=== PATIENT | male | born 1970 | race Caucasian/White ===

== ENCOUNTER 2016-02-14 01:26 | Emergency (ER) | payer OTHER ==
[~2016-02-14] VITALS: Ht 172.7 cm; Wt 89.1 kg
[~2016-02-14 01:26] MED LIST: LORA1TAB PO; NAPR220C11 PO; RES15 PO
[2016-02-14 01:32] VITALS: BP 131/79; PULSE 83; RESP 16; O2SAT 99
--- NOTE | 2016-02-14 01:33 | ED.REPORT ---
HPI-General Illness Date of Service Feb 14, 2016 ED Provider: Dr. Gu Pt is a 45 y/o male w/ a hx of Stage IV non-Hodgkin's lymphoma, diabetes, peripheral neuropathy, presenting to the ED due to mid-upper back pain onset this morning. His back pain intermittently resolves and is followed by right posterior calf pain with tenderness to the touch. This wave of symptoms has occurred 3 times today. He also notes a red line above his right posterior shoulder. He denies SOB, extremity swelling, increased leg numbness or weakness , bowel or bladder incontinence. Oncologist: Dr. Dave Nursing Notes Stated Complaint: MID BACK PAIN & R LEG PAIN Chief Complaint: General Complaint Nursing Notes Reviewed: Yes Allergies: Coded Allergies: latex (Verified Allergy, Severe, HIVES, 02/14/16) Penicillins (Verified Allergy, Intermediate, mild hives, 02/14/16) HAS TAKEN PIPERACILLIN W/O PROBLEMS metronidazole (Verified Allergy, Unknown, UNKNOWN, 02/14/16) codeine (Verified Adverse Reaction, Severe, Dizziness, nausea, 02/14/16) levofloxacin (Verified Adverse Reaction, Severe, tendonitis, achilles, 02/13) Scheduled PRN Lorazepam (Lorazepam) 1 Mg Tablet 1 MG PO Q6H PRN PRN For Anxiety or Agitation Naproxen Sodium (Aleve) 220 Mg Capsule 220 MG PO DIRECTED PRN PRN For Pain Temazepam (Temazepam) 15 Mg Capsule 15-30 MG PO HS PRN PRN For Insomnia General Time Seen by MD: 01:33 Chief Complaint Back pain Hx Obtained From: Patient Arrived By: Walk-in Sudden in Onset?: No Onset Occurred: 5 - 8 hours ago Symptom Duration: Since onset Location: : Back: Leg right Quality: Painful Severity: Current: Mild Severity: Maximum: Moderate Similar Sx Previous: No Past Medical History Past Medical History Notes: oncologist: Dr. 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 Past Surgical History Pituitary adenoma resection Port-A-Cath Right forearm arm repair Reports: Appendectomy Smoking History Current Every Day Smoker, Heavy Tobacco Smoker Social History Alcohol Use: Denies alcohol use Drug Use: Denies drug use Other Social History: Local resident Ambulatory Status Independent Review of Systems Full Review of Systems Respiratory: Denies: Shortness of breath Musculoskeletal: Reports: Back pain, Extremity pain, Denies: Extremity swelling Neurologic: Denies: Bladder dysfunction, Bowel dysfunction, Numbness, Weakness Complete sys rev & neg: except as marked. Physical Exam Vital Signs Vital Signs Date Time Temp Pulse Resp B/P Pulse Ox O2 Delivery O2 Flow Rate FiO2 02/14/16 04:34 36.4 78 16 114/65 95 Room Air 02/14/16 01:32 36.1 83 16 131/79 99 Room Air Initial VS: Reviewed Head / Eyes: Atraumatic, Normocephalic, PERRL ENT: Mucous membranes moist, Conjunctiva normal, No scleral icterus Neck: Supple, Full range of motion Respiratory: Breath sounds normal, Clear to auscultation, No respiratory distress Cardiovascular: Regular rate & rhythm, Heart sounds normal, Intact distal pulses Abdomen / GI: Soft Skin: Warm, Dry, No cyanosis Neurologic: Alert, Oriented, Nonfocal Psychiatric: Mood/affect normal, Behavior normal, Normal thought content General/Constitutional: Awake, Alert, No acute distress, Cooperative, Not toxic appearing Back: Atraumatic, Full range of motion, Painless range of motion, No midline vertebral tend Tenderness of the sub-scapular parispinous muscles on the right 7 cm superficial scratch over the right parispinous area just below the neck. Lower Extremity / Pelvis / MS: Atraumatic, Full range of motion, No deformity, Neurologic intact, Vascular intact, No ligamentous injury, No compartment syndrome Varicose veins of the right calf which are tender, blue, and prominent Interpretation & Diagnostics Lab Results Interpretation Result Diagram: 02/14/16 0315 02/14/16 0215 Test 02/14/16 02:15 02/14/16 03:15 Sodium Level 139mEq/L (134-144) Potassium Level 4.2mEq/L (3.5-5.2) Chloride Level 99mEq/L (97-108) Carbon Dioxide Level 25mmol/L (18-29) Blood Urea Nitrogen 14mg/dL (6-24) Creatinine 0.85mg/dL (0.76-1.27) Estimat Glomerular Filtration Rate 104mL/min (>59) Glucose Level 85mg/dL (60-99) Calcium Level 9.4mg/dL (8.5-10.1) Magnesium Level 1.9mg/dL (1.6-2.6) Total Bilirubin 0.4mg/dL (0.0-1.2) Aspartate Amino Transf (AST/SGOT) 46U/L (0-50) Alanine Aminotransferase (ALT/SGPT) 19U/L (0-44) Alkaline Phosphatase 82U/L (25-150) Troponin T 0.010ug/L (0.0-0.011) Pro-B-Type Natriuretic Peptide 19pg/mL (0-86) Total Protein 7.1g/dL (6.4-8.4) Albumin 4.4g/dL (3.4-5.0) White Blood Count 6.6th/mm3 (3.8-10.1) Red Blood Count 5.00mil/mm3 (4.40-5.80) Hemoglobin 15.0g/dL (13.8-17.2) Hematocrit 43.6% (41.0-50.0) Mean Corpuscular Volume 87.2fL (81-100) Mean Corpuscular Hemoglobin 30.0pg (27.0-35.0) Mean Corpuscular Hemoglobin Concent 34.4% (32.0-37.0) Red Cell Distribution Width 14.2% (12.3-15.4) Platelet Count 316bil/L (150-400) Neutrophils (%) (Auto) 50.5% (40-74) Lymphocytes (%) (Auto) 31.6% (14-46) Monocytes (%) (Auto) 12.7% (4-12) Eosinophils (%) (Auto) 4.5% (0-5) Basophils (%) (Auto) 0.2% (0-3) Prothrombin Time 9.9sec (8.1-12.5) Prothromb Time International Ratio 0.93ratio Activated Partial Thromboplast Time 28.5sec (22.8-33.0) D-Dimer < 0.5mg/L (<0.50) Hold Boyer Top Tube Received (Received) ECG Interpretation ECG Interpretation: Sinus rhythm rate 74 APC Benign repol pattern Time: 03:04 Interpreted by: ED physician Normal ECG Interpretation: No acute ischemic changes X-Ray Chest Interpretation View: Portable, AP & lat Interpretation / Wet Read by: Wet read ED physician NL X-Ray Chest Findings: No infiltrate, No acute disease Re-Eval/Medical Decision Med Decision/Clinical Course 45-year-old with calf pain and concern for clot in his leg. He is multiple varicosities that are tender, but no edema and no other evidence of DVT. A d-dimer is negative. Pain is upper back is elicitable by palpation and he has negative chest x-ray. His lab or reassuringly negative. He is discharged now in stable condition for follow-up with PCP. Support hose recommended. Discharged in stable condition. Percocet ten pack given. Time of Eval: 04:06 Patient Status: Condition improved, Moderate relief, Pain improved Re-Evaluation/Progress Note: Pt rechecked. Discussed negative lab and imaging findings. Informed pt of plan for treatment. Pt understands and agrees with plan for treatment. F/U and RTER warnings given. All questions addressed. Counseled Regarding: Diagnosis, Lab results, Need for follow-up, When/why to return to ED Discharge & Departure Primary Impression: Back pain Back pain location: back pain in unspecified location Chronicity: acute Back pain laterality: bilateral Qualified Code: M54.9 - Dorsalgia, unspecified Additional Impression: Varicose veins of bilateral lower extremities with pain Disposition: Home Discharge Condition All VS Reviewed: Yes Condition: Stable Additional Instructions: Consider wearing your compression hose as long as you are having these pains in your varicose veins. Percocet sparingly for pain as needed Follow-up with your doctor in the office. Referrals: Jaden Rhodes MD (PCP) Scribe Attestation Portions of this note were transcribed by Mika Pineda. I, Dr. Gu personally performed the history, physical exam and medical decision-making; I reviewed and confirmed the accuracy of the information in the transcribed note. Signed by Ronny Wray, 02/14/16 - 0133 copies to: Jaden Rhodes MD, Christopher W MD Feb 14, 2016 01:33 MIKA PINEDA Feb 14, 2016 01:49
[2016-02-14 02:55] LABS: TROPONIN T 0.01 ug/L (0.0-0.011)
[2016-02-14 03:08] LABS: Magnesium 1.9 mg/dL (1.6-2.6)
[2016-02-14 03:28] LABS: BASOPHILS % (AUTO) 0.2 % (0-3); EOSINOPHILS % (AUTO) 4.5 % (0-5); MONOCYTES % (AUTO) 12.7 % (4-12); Mean Corpuscular Volume 87.2 fL (81-100); NEUTROPHILS % (AUTO) 50.5 % (40-74); Platelet Count 316 bil/L (150-400)
[2016-02-14 03:50] LABS: D-DIMER < 0.5 mg/L (<0.50); INR 0.93 ratio
[2016-02-14] MEDS ORDERED: _oxyCODONE/APAP 5-325 mg Tablet PO PRN (04:15)
[2016-02-14 04:34] VITALS: BP 114/65; PULSE 78; RESP 16; O2SAT 95
--- NOTE | 2016-02-14 07:11 | DRSVH ---
PROCEDURE: X-RAY CHEST, TWO VIEWS ([id number]) INDICATIONS: 45 year-old male with Burkitt's lymphoma and right subscapular back pain. TECHNIQUE: 2 views of the chest were acquired. COMPARISON: [facility], CR, XR CHEST 1VW (PORTABLE), 12/31/2015, 0:44. [facility], CR, XR CHEST 1VW (PORTABLE), 05/26/2015, 12:47. [facility], CR, XR CHEST 2VW, , 16:36. FINDINGS: Surgical changes and devices: None. Lungs and pleura: No pleural effusions or pneumothorax. Lungs are clear. Mediastinum: Mediastinal contours are normal. Heart size is normal. Bones and chest wall: No suspicious bony abnormalities. Soft tissues appear unremarkable. IMPRESSION: No acute cardiopulmonary disease. Dictated by: Drew Mccormick M.D. on 02/14/2016 at 7:09 Approved by: Drew Mccormick M.D. on 02/14/2016 at 7:09
== END 2016-02-14 04:40 | disposition home or self-care (01) ==
LOC: SED 01:26
DX: M54.9 Dorsalgia, unspecified (principal); I83.813 Varicose veins of bilateral lower extremities with pain; E11.9 Type 2 diabetes mellitus without complications; F17.200 Nicotine dependence, unspecified, uncomplicated; Z88.0 Allergy status to penicillin; Z88.5 Allergy status to narcotic agent; Z91.040 Latex allergy status
CPT/HCPCS: 36415; 71020; 80053; 82948; 83735; 83880; 84484; 85025; 85379; 85610; 85730; 93005; 96374; 96375; 99285; J2060

== ENCOUNTER 2016-09-25 12:12 | Emergency (ER) | payer OTHER ==
[~2016-09-25] VITALS: Ht 180.3 cm; Wt 88.2 kg
[~2016-09-25 12:12] MED LIST changes: +DIPH25CA6 PO; +PRED1POW2 MC
[2016-09-25 12:15] VITALS: BP 143/106; PULSE 109; RESP 16; O2SAT 99
--- NOTE | 2016-09-25 12:21 | ED.REPORT ---
HPI-Dental/Mouth Prob Date of Service Sep 25, 2016 ED Provider: History of Present Illness: lower left tooth abscess, off and on over the last year started a few months ago. pain gone now. but has a bump in jaw. Nursing Notes Stated Complaint: ABSCESS TOOTH Chief Complaint: Dental Nursing Notes Reviewed: Yes Allergies: Coded Allergies: latex (Verified Allergy, Severe, HIVES, 09/25/16) Iodinated Contrast- Oral and IV Dye (Verified Allergy, Mild, facial tingling, 09/25/16) Pt said he had facial tingling and throat swelling after drinking oral contrast for CT, said he was taken into the IV start room and given benadryl. kld metronidazole (Verified Allergy, Unknown, UNKNOWN, 09/25/16) codeine (Verified Adverse Reaction, Severe, Dizziness, nausea, 09/25/16) levofloxacin (Verified Adverse Reaction, Severe, tendonitis, achilles, ) Scheduled PRN Lorazepam (Lorazepam) 1 Mg Tablet 1 MG PO Q6H PRN PRN For Anxiety or Agitation Naproxen Sodium (Aleve) 220 Mg Capsule 220 MG PO DIRECTED PRN PRN For Pain Temazepam (Temazepam) 15 Mg Capsule 15-30 MG PO HS PRN PRN For Insomnia diphenhydrAMINE HCl (Benadryl) 25 Mg Capsule 25 MG PO HS PRN PRN Miscellaneous Medications Prednisolone (Prednisolone) 1 Gm Powder 1 GM [facility] General Time Seen by MD: 12:20 Chief Complaint Other (swelling in lower lip) Hx Obtained From: Patient Onset Occurred: More than a week ago... (4 months) Severity: Current: No pain currently Past Medical History Past Medical History Notes: oncologist: Dr. 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 with PET scan CT performed September 02 showing extensive disease throughout the abdomen and pelvis - on R-EPOCH treatment Diabetes Peripheral neuropathy Asthma Pseudoseizure 1 prior to resection of pituitary adenoma History of injury to C5 and C6 Varicose veins History of depression and anxiety (not on any medication)- followed by [facility] Past Surgical History Pituitary adenoma resection Port-A-Cath Right forearm arm repair Reports: Appendectomy Smoking History Current Every Day Smoker, Heavy Tobacco Smoker Social History Alcohol Use: Denies alcohol use Drug Use: Denies drug use Other Social History: Local resident 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 no work or school 09/25/2016 Ambulatory Status Independent Review of Systems Basic Review of Systems Eyes: Vision NL, No discharge Endocrine: No cold intolerance, No heat intolerance, No weight gain, No weight loss Psychiatric: Normal thought content Physical Exam Initial Vital Signs Vital Signs (First) Date Time Temp Pulse Resp B/P Pulse Ox O2 Delivery O2 Flow Rate FiO2 09/25/16 12:15 37.0 109 16 143/106 99 Room Air Initial VS: Reviewed, Vital signs abnormal General/Constitutional: Well-developed, Well-nourished Head / Eyes: Atraumatic, Normocephalic, PERRL Respiratory: Breath sounds normal, Clear to auscultation, No respiratory distress Cardiovascular: Regular rate & rhythm, Heart sounds normal, Intact distal pulses Abdomen / GI: Soft, Non-tender, No guarding, No rebound, No distention Back: No CVA tenderness Lymphatic: No lymphadenopathy Extremities: Vascular intact, Neuro intact, No swelling, No tenderness Skin: Warm, Dry, No cyanosis Neurologic: Alert, Oriented, Nonfocal Psychiatric: Mood/affect normal, Behavior normal, Normal thought content ENT: Atraumatic, Airway patent, Mucous membranes moist, Pharynx NL Neck: Atraumatic, Supple, No meningismus, Full range of motion, No adenopathy General/Constitutional: Awake, Alert, No acute distress, Well appearing, Well developed, Well hydrated Respiratory / Chest: Atraumatic, Breath sounds NL, Breath sounds = bilat, No respiratory distress Cardiovascular: Heart rate NL, Regular rhythm, Heart sounds NL, No gallop Re-Eval/Medical Decision Med Decision/Clinical Course 45year old male presents to the ER for evualation of swelling in lower left tooth area. Patient staties it has been off and on over the last year. He does report having a dental appointment next week. No sign of airway impariment or difficulty breathing Discharge & Departure Primary Impression: Dental abscess Disposition: Home Patient Instructions: Dental Abscess (ED) Additional Instructions: You have a palpable lump by your lip. Start antibiotics amoxicillin 500 mg 3 times a day for 10 days. Please keep the dental appointment as scheduled. REturn with any concerns. Referrals: Jaden Rhodes MD (PCP) EDSupervising Provider for APC: Jose Kaur MD copies to: Jaden Rhodes MD, Sue COUNSELLING PSYCHOLOGIST Sep 25, 2016 12:21
== END 2016-09-25 12:49 | disposition home or self-care (01) ==
LOC: SED 12:12
DX: K04.7 Periapical abscess without sinus (principal); F17.200 Nicotine dependence, unspecified, uncomplicated; E11.40 Type 2 diabetes mellitus with diabetic neuropathy, unspecified; Z88.1 Allergy status to other antibiotic agents; Z88.5 Allergy status to narcotic agent; Z91.040 Latex allergy status

== ENCOUNTER 2016-10-30 17:26 | Emergency (ER) | payer OTHER ==
[~2016-10-30] VITALS: Ht 172.7 cm; Wt 87.7 kg
[2016-10-30 17:40] VITALS: BP 139/87; PULSE 108; RESP 18; O2SAT 96
--- NOTE | 2016-10-30 18:36 | ED.REPORT ---
HPI-Abd Pain M 40 and Over Date of Service Oct 30, 2016 ED Provider: Bonilla Still DO The pt is a 46 year old male with a hx of Burkitt's lymphoma, HTN, and asthma presenting to the ED complaining of worsening left-sided abdominal pain onset 3 days ago. Associated symptoms include constipation, hematochezia with bright red blood, intermittent SOB, fever, nausea, and vomiting. He reports that he only had a small amount with his bowel movement 3 days ago. Patient denies chills, chest pain, wheezing, vision changes, diarrhea, dysuria, or back pain. The patient states that he has been dealing with lower abdominal pain for awhile but in the past three days it has worsened and moved more to his left lower quadrant. Nursing Notes Stated Complaint: ABD PAIN Chief Complaint: Male Abdominal Pain Nursing Notes Reviewed: Yes Allergies: Coded Allergies: latex (Verified Allergy, Severe, HIVES, 11/04/16) Iodinated Contrast- Oral and IV Dye (Verified Allergy, Mild, facial tingling, 11/04/16) Pt said he had facial tingling and throat swelling after drinking oral contrast for CT, said he was taken into the IV start room and given benadryl. kld metronidazole (Verified Allergy, Unknown, UNKNOWN, 11/04/16) codeine (Verified Adverse Reaction, Severe, Dizziness, nausea, 11/04/16) levofloxacin (Verified Adverse Reaction, Severe, tendonitis, achilles, ) Scheduled PRN Lorazepam (Lorazepam) 1 Mg Tablet 1 MG PO Q6H PRN PRN For Anxiety or Agitation Naproxen Sodium (Aleve) 220 Mg Capsule 220 MG PO DIRECTED PRN PRN For Pain Temazepam (Temazepam) 15 Mg Capsule 15-30 MG PO HS PRN PRN For Insomnia diphenhydrAMINE HCl (Benadryl) 25 Mg Capsule 25 MG PO HS PRN PRN Miscellaneous Medications Prednisolone (Prednisolone) 1 Gm Powder 1 GM [facility] General Time Seen by MD: 18:39 Chief Complaint Abdominal pain (LLQ) Hx Obtained From: Patient Arrived By: Walk-in Sudden in Onset?: No Onset Occurred: 3 days ago Symptom Duration: Since onset Location: : LLQ Quality: Painful Radiation: : Abdomen lower Severity: Current: Moderate Recent Healthcare: No recent hospitalization, Recent doctor visit Similar Sx Previous: Yes Past Medical History Past Medical History Notes: oncologist: Dr. 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 with PET scan CT performed September 02 showing extensive disease throughout the abdomen and pelvis - on R-EPOCH treatment Diabetes Peripheral neuropathy Asthma Pseudoseizure 1 prior to resection of pituitary adenoma History of injury to C5 and C6 Varicose veins History of depression and anxiety (not on any medication)- followed by [facility] Past Surgical History Pituitary adenoma resection Port-A-Cath Right forearm arm repair Reports: Appendectomy Smoking History Current Every Day Smoker, Heavy Tobacco Smoker Social History Alcohol Use: Denies alcohol use Drug Use: Denies drug use Other Social History: Local resident 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 no work or school 09/25/2016 Ambulatory Status Independent Review of Systems Constitutional: Reports: Fever, Denies: Chills Respiratory: Reports: Shortness of breath, Denies: Wheezing Cardiovascular: Denies: Chest pain GI: Reports: Abdominal pain (LLQ), Constipation, Hematochezia (bright red blood ), Nausea, Vomiting, Denies: Diarrhea Male: Denies Dysuria Musculoskeletal: Denies: Back pain Complete sys rev & neg: except as marked. Physical Exam Initial Vital Signs Initial VS: Reviewed, Vital signs normal Head / Eyes: Atraumatic, Normocephalic, PERRL Neck: Supple, Non-tender, Full range of motion Lymphatic: No lymphadenopathy Extremities: Vascular intact, Neuro intact, No swelling, No tenderness Skin: Warm, Dry Neurologic: Alert, Oriented General/Constitutional: Awake, Alert Respiratory / Chest: Atraumatic, Breath sounds NL, Breath sounds = bilat, No respiratory distress Cardiovascular: Regular rhythm, Heart sounds NL Heart Rate / Rhythm: Positive: Tachycardia Abdomen: Atraumatic, Soft Tenderness/Guarding/Rebound: Positive: Tender LLQ... (with guarding) Back: Atraumatic, Non-tender Interpretation & Diagnostics Lab Results Interpretation Test 10/30/16 18:24 10/30/16 21:07 White Blood Count 10.0th/mm3 (3.8-10.1) Red Blood Count 5.92mil/mm3 (4.40-5.80) Hemoglobin 17.5g/dL (13.8-17.2) Hematocrit 51.5% (41.0-50.0) Mean Corpuscular Volume 87.0fL (81-100) Mean Corpuscular Hemoglobin 29.6pg (27.0-35.0) Mean Corpuscular Hemoglobin Concent 34.0% (32.0-37.0) Red Cell Distribution Width 14.3% (12.3-15.4) Platelet Count 327bil/L (150-400) Neutrophils (%) (Auto) 68.3% (40-74) Lymphocytes (%) (Auto) 21.1% (14-46) Monocytes (%) (Auto) 8.2% (4-12) Eosinophils (%) (Auto) 1.9% (0-5) Basophils (%) (Auto) 0.2% (0-3) Sodium Level 141mEq/L (134-144) Potassium Level 4.0mEq/L (3.5-5.2) Chloride Level 98mEq/L (97-108) Carbon Dioxide Level 27mmol/L (18-29) Blood Urea Nitrogen 8mg/dL (6-24) Creatinine 1.00mg/dL (0.76-1.27) Estimat Glomerular Filtration Rate 86mL/min (>59) Glucose Level 88mg/dL (60-99) Lactic Acid Level 1.2mmol/L (0.4-2.0) Calcium Level 10.0mg/dL (8.5-10.1) Magnesium Level 2.0mg/dL (1.6-2.6) Total Bilirubin 0.5mg/dL (0.0-1.2) Aspartate Amino Transf (AST/SGOT) 43U/L (0-50) Alanine Aminotransferase (ALT/SGPT) 18U/L (0-44) Alkaline Phosphatase 108U/L (25-150) Total Protein 8.4g/dL (6.4-8.4) Albumin 4.9g/dL (3.4-5.0) Lipase 38U/L (13-60) Urine Color Yellow (YELLOW) Urine Appearance Clear (CLEAR,HAZY) Urine pH 7.0 (5.0-8.0) Urine Specific [place] 1.005 (1.003-1.035) Urine Protein Negativemg/dL (NEG,TRACE) Urine Glucose (UA) Negativemg/dL (NEGATIVE) Urine Ketones Negativemg/dL (NEGATIVE) Urine Occult Blood Negative (NEGATIVE) Urine Nitrite Negative (NEGATIVE) Urine Bilirubin Negative (NEGATIVE) Urine Urobilinogen Normalmg/dL (NORMAL) Urine Leukocyte Esterase Negative (NEGATIVE) Urine RBC 0-2/hpf (0-2) Urine WBC 0-5/hpf (0-5) Urine Epithelial Cells None/hpf (NONE-MOD) Urine Crystals None seen (NONE SEEN) Urine Bacteria None/hpf (NONE-FEW) Urine Hyaline Casts None/lpf (NONE) Urine Granular Casts None seen (NONE SEEN) Urine Waxy Casts None seen (NONE SEEN) Urine Red Blood Cell Casts None seen (NONE SEEN) Urine White Blood Cell Casts None seen (NONE SEEN) Urine Mucus None seen (None Seen) Urine Trichomonas None seen (NONE SEEN) Urine Yeast None (NONE SEEN) Urinalysis Comment None Urine Culture Reflexed Not indicated CT Abd / Pelvis Interpretation IMPRESSION: 1. Fat stranding medial to the distal descending colon within the omentum, most likely secondary to mental infarct. Differential diagnoses include epiploic appendagitis and less likely, diverticulitis. Recommend clinical correlation. 2. Stable right common iliac lymph node. 3. Small hiatal hernia. Dictated by: Dov Moise M.D. on 10/30/2016 at 19:39 Study type: Abdominal CT no contrast Interpretation / Wet Read by: Interpret - Radiologist Re-Eval/Medical Decision Med Decision/Clinical Course 46-year-old male with a history of Burkitt's lymphoma recently declared to be in remission presenting with off and on left lower quadrant pain for several years, but worsening the past couple of days. He is significantly tender on exam initially. He was tachycardic and, although he did not meet criteria for fever he was quite close at 37.6. I considered infectious etiologies, but his white blood cell count was not elevated, and after reviewing the CT scan with the general surgery team, they do not recommend treating for diverticulitis. The diagnosis is an omental infarction which is the cause of his pain. He does not need intervention per the surgical team and they recommend pain control with close follow-up, return if symptoms worsen. This was discussed with patient and he agrees with the plan. Also he has not had a bowel movement for 3 days so he was treated with magnesium citrate and discharged with MiraLAX, especially in light of being discharged on pain medication. I wanted to use contrast with CT scan, however the patient is allergic to and had to be premedicated for 13 hours prior to his last CT, so the scan was done without contrast. Patient is feeling better after morphine, Dilaudid, and Toradol and is in agreement with the plan. Time of Eval: 21:01 Re-Evaluation/Progress Note: Patient rechecked. Discussed lab results and possible diagnoses, and plan to consult with surgeon. Time of Eval: 21:45 Re-Evaluation/Progress Note: Patient rechecked. Discussed plan to discharge. All questions addressed at this time. Consultation #1: Referral / Consult Name: Lauryn Pryor MD Call Returned at: 21:13 Note: Consult with vice president payment who will discuss the case with Dr. Pryor. Discussed patient's case. Discussed plan for giving pain meds, antibiotics, and follow up. Consultation #2: Referral / Consult Name: Lauryn Pryor MD Consulted With: Trauma surgeon Call Returned at: 21:32 Therapeutic Activities Services Worker: Agrees with eval, Agrees with plan Note: Recommended no antibiotics. Counseled Regarding: Diagnosis, Lab results, Need for follow-up, When/why to return to ED Discharge & Departure Primary Impression: Omental infarction Additional Impressions: Abdominal pain Abdominal location: left lower quadrant Qualified Code: R10.32 - Left lower quadrant pain Constipation Constipation type: unspecified constipation type Qualified Code: K59.00 - Constipation, unspecified Disposition: Home Vital Signs - All )( All Prior VS Reviewed: Yes Condition: Improved Patient Instructions: Acute Abdominal Pain (ED) Additional Instructions: Thank you for entrusting us with your care today. Your CT and lab results were reassuring. Your CT results show a possible omental infarction which could explain her pain. I reviewed this with our general surgeons and they do not recommend any treatment. We do not believe that you have any infection leading to your symptoms today. Your pain should improve over the next couple of days. Use ibuprofen 800 mg 3 times a day for baseline pain and Percocet for breakthrough pain. For your constipation you should drink magnesium citrate which was provided today and use MiraLAX once daily. Drink plenty of fluids. Follow up with your primary care provider in the next couple days for a recheck. Return to the emergency department for blood in your stool or urine, fever, nausea, vomiting, or any new or concerning symptoms. Referrals: Jaden Rhodes MD (PCP) Scribe Attestation Portions of this note were transcribed by Marya Saleem and Zechariah Johnston. Dr. Tessy Gunter personally performed the history, physical exam and medical decision -making; I reviewed and confirmed the accuracy of the information in the transcribed note. Signed by: Ronny Boland, 10/30/2016 copies to: Jaden Rhodes MD, Gary R DO Oct 30, 2016 18:36 Oct 30, 2016 18:49 Jessie Saleem Oct 30, 2016 20:49 today and use MiraLAX once daily. Drink plenty of fluids. Follow up with your primary care provider in the next couple days for a recheck. Return to the emergency department for blood in your stool or urine, fever, nausea, vomiting, or any new or concerning symptoms. Referrals: Jaden Rhodes MD (PCP) Scribe Attestation Portions of this note were transcribed by Marya Saleem and Zechariah Johnston. Dr. Tessy Gunter personally performed the history, physical exam and medical decision -making; I reviewed and confirmed the accuracy of the information in the transcribed note. Signed by: Ronny Boland, 10/30/2016 copies to: Jaden Rhodes MD, Gary R DO Oct 30, 2016 18:36 Oct 30, 2016 18:49 Jessie Saleem Oct 30, 2016 20:49
[2016-10-30 18:40] LABS: BASOPHILS % (AUTO) 0.2 % (0-3); EOSINOPHILS % (AUTO) 1.9 % (0-5); MONOCYTES % (AUTO) 8.2 % (4-12); Mean Corpuscular Hemoglobin 29.6 pg (27.0-35.0); NEUTROPHILS % (AUTO) 68.3 % (40-74); Platelet Count 327 bil/L (150-400)
[2016-10-30] MEDS ORDERED: 0.9% Sodium Chloride 1,000 ML IV ONE (18:47)
[2016-10-30] MEDS ORDERED: Ondansetron 2 mg/mL 2 mL Inj IVPUSH PRN (18:50)
[2016-10-30] MEDS ORDERED: HYDROmorphone 0.5 mg/0.5 mL iSecure Syringe IVPUSH PRN (18:50)
--- NOTE | 2016-10-30 20:08 | DRSVH ---
PROCEDURE: CT ABDOMEN AND PELVIS WITHOUT CONTRAST ([id number]) INDICATIONS: LLQ pain, constipation, h/o abd lymphoma TECHNIQUE: Noncontrast 5 mm thick sections acquired from the diaphragms to the symphysis. 5 mm coronal and sagi ttal reformats were then performed. For radiation dose reduction, the following was used: automated exposure control, adjustment of mA and/or kV according to patient size. COMPARISON: [facility], CT, CT CHEST ABD PELVIS W CON, 09/17/2015, 15:01. [facility], CT, CT CHEST ABD PELVIS W CON, 09/21/2016, 9:31. [facility], CT, ABD/PELVIS W/O CON (PNL), 08/01/2014, 18:55. FINDINGS: Image quality: Excellent. ABDOMEN: Lung bases: Subpleural densities in the right middle lobe and lingula are likely atelectasis or scarr ing.. Heart size is normal. There is a small hiatal hernia. Solid organs: Liver and spleen are normal in size. Gallbladder is normal. Pancreas is normal in co ntours. No adrenal nodules. Kidneys are normal in size, without hydronephrosis or nephrolithiasis. Peritoneum and bowel: Unenhanced bowel loops demonstrate normal wall thickness and caliber. There i s fat stranding medial to the distal descending colon within the omentum, suspicious for mental infar ct. No free fluid or air. Nodes and vessels: There is a 1.3 x 1.5 cm mass anterior to the right common iliac vein, unchanged in size. No other enlarged retroperitoneal or mesenteric lymph nodes. Aorta and inferior vena cava are normal in caliber. Miscellaneous: No ventral hernias. PELVIS: Genitourinary: Bladder wall thickness is normal. Miscellaneous: No inguinal hernias or adenopathy. Bones: No suspicious bony lesions. No vertebral body compression fractures. IMPRESSION: 1. Fat stranding medial to the distal descending colon within the omentum, most likely secondary to m ental infarct. Differential diagnoses include epiploic appendagitis and less likely, diverticulitis. Recommend clinical correlation. 2. Stable right common iliac lymph node. 3. Small hiatal hernia. Dictated by: Dov Moise M.D. on 10/30/2016 at 19:39 Approved by: Dov Moise M.D. on 10/30/2016 at 20:06
[2016-10-30] MEDS ORDERED: _oxyCODONE/APAP 5-325 mg Tablet PO PRN (21:45)
[2016-10-30 21:52] LABS: APPEARANCE,URINE CLEAR (CLEAR,HAZY); COLOR,URINE YELLOW (YELLOW); OCCULT BLOOD,URINE NEGATIVE (NEGATIVE); UROBILINOGEN,URINE NORMAL (NORMAL)
[2016-10-30 22:11] VITALS: BP 125/82; PULSE 71; RESP 16; O2SAT 97
== END 2016-10-30 22:48 | disposition home or self-care (01) ==
LOC: SED 17:26
DX: K55.049 Acute infarction of large intestine, extent unspecified (principal); K59.00 Constipation, unspecified; R10.32 Left lower quadrant pain; K92.1 Melena; R06.02 Shortness of breath; R11.0 Nausea; I10 Essential (primary) hypertension; J45.909 Unspecified asthma, uncomplicated; E11.40 Type 2 diabetes mellitus with diabetic neuropathy, unspecified; F17.200 Nicotine dependence, unspecified, uncomplicated; Z92.21 Personal history of antineoplastic chemotherapy; Z98.890 Other specified postprocedural states; Z88.1 Allergy status to other antibiotic agents; Z88.5 Allergy status to narcotic agent; Z91.040 Latex allergy status; Z91.041 Radiographic dye allergy status
CPT/HCPCS: 36415; 74176; 80053; 81000; 83605; 83690; 83735; 85025; 96361; 96374; 96375; 99285; J1170; J1885; J2270; J2405; J7030

== ENCOUNTER 2016-11-04 15:20 | Emergency (ER) | payer OTHER ==
[~2016-11-04] VITALS: Ht 172.7 cm; Wt 88.2 kg
[2016-11-04 15:24] VITALS: BP 133/71; PULSE 83; RESP 20; O2SAT 100
[2016-11-04] MEDS ORDERED: Ondansetron 8 mg ODT Tablet PO ONE (15:35)
[2016-11-04 15:38] VITALS: BP 138/78; PULSE 72; RESP 16; O2SAT 100
[2016-11-04 15:57] LABS: BASOPHILS % (AUTO) 0.1 % (0-3); EOSINOPHILS % (AUTO) 0.3 % (0-5); MONOCYTES % (AUTO) 6.9 % (4-12); Mean Corpuscular Hemoglobin 29.3 pg (27.0-35.0); Mean Corpuscular Volume 84.4 fL (81-100); NEUTROPHILS % (AUTO) 86.6 % (40-74); Platelet Count 378 bil/L (150-400)
--- NOTE | 2016-11-04 16:57 | ED.REPORT ---
HPI-General Illness Date of Service Nov 04, 2016 ED Provider: Jose Kaur MD Patient is a 46 year old male with a history of hypertension and Burkitt's lymphoma who presents to the ED complaining of vomiting onset two hours ago. Associated symptoms include nausea, chills, heart palpitations and diaphoresis. He denies abdominal pain. The patient reports that after smoking a cigarette at his friends house he began experiencing these symptoms and thinks it might have been laced with drugs.Patient states that his symptoms started suddenly after the cigarette and was concerned about drugs or flu. He had dental work done yesterday and was started on antibiotics. Patient is scheduled to have more surgery since part of the root was left in his mouth. Nursing Notes Stated Complaint: POSS DRUGS OR SICK Chief Complaint: Male Abdominal Pain Nursing Notes Reviewed: Yes Allergies: Coded Allergies: latex (Verified Allergy, Severe, HIVES, 11/04/16) Iodinated Contrast- Oral and IV Dye (Verified Allergy, Mild, facial tingling, 11/04/16) Pt said he had facial tingling and throat swelling after drinking oral contrast for CT, said he was taken into the IV start room and given benadryl. kld metronidazole (Verified Allergy, Unknown, UNKNOWN, 11/04/16) codeine (Verified Adverse Reaction, Severe, Dizziness, nausea, 11/04/16) levofloxacin (Verified Adverse Reaction, Severe, tendonitis, achilles, ) Scheduled PRN Lorazepam (Lorazepam) 1 Mg Tablet 1 MG PO Q6H PRN PRN For Anxiety or Agitation Naproxen Sodium (Aleve) 220 Mg Capsule 220 MG PO DIRECTED PRN PRN For Pain Temazepam (Temazepam) 15 Mg Capsule 15-30 MG PO HS PRN PRN For Insomnia diphenhydrAMINE HCl (Benadryl) 25 Mg Capsule 25 MG PO HS PRN PRN Miscellaneous Medications Prednisolone (Prednisolone) 1 Gm Powder 1 GM [facility] General Time Seen by MD: 15:30 Chief Complaint Vomiting Hx Obtained From: Patient Arrived By: Walk-in Sudden in Onset?: Yes Onset Occurred: 1 - 4 hours ago Severity: Current: No pain currently Recent Healthcare: Recent doctor visit Past Medical History Past Medical History Notes: oncologist: Dr. 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 with PET scan CT performed September 02 showing extensive disease throughout the abdomen and pelvis - on R-EPOCH treatment Diabetes Peripheral neuropathy Asthma Pseudoseizure 1 prior to resection of pituitary adenoma History of injury to C5 and C6 Varicose veins History of depression and anxiety (not on any medication)- followed by [facility] Past Surgical History Pituitary adenoma resection Port-A-Cath Right forearm arm repair Reports: Appendectomy Smoking History Current Every Day Smoker, Heavy Tobacco Smoker Social History Alcohol Use: Denies alcohol use Drug Use: Denies drug use Other Social History: Local resident 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 no work or school 09/25/2016 Ambulatory Status Independent Review of Systems Full Review of Systems Constitutional: Reports: Chills Cardiovascular: Reports: Palpitations GI: Reports: Nausea, Vomiting, Denies: Abdominal pain Skin: Reports Diaphoresis Complete sys rev & neg: except as marked. Physical Exam Vital Signs Vital Signs Date Time Temp Pulse Resp B/P Pulse Ox O2 Delivery O2 Flow Rate FiO2 11/04/16 15:38 36.4 72 16 138/78 100 Room Air 11/04/16 15:24 36.4 83 20 133/71 100 Room Air Initial VS: Reviewed General/Constitutional: Awake, Alert Head / Eyes: Atraumatic, Normocephalic Respiratory / Chest: Atraumatic, Breath sounds NL, Breath sounds = bilat, No respiratory distress Cardiovascular: Heart rate NL, Regular rhythm, Heart sounds NL Abdomen: Atraumatic, Soft, Non-tender Skin: Atraumatic, Color NL, No rash, Warm, Dry Neurologic: Oriented X3, Speech NL Interpretation & Diagnostics Lab Results Interpretation Result Diagram: 11/04/16 1543 11/04/16 1543 Test 11/04/16 15:43 White Blood Count 17.8th/mm3 (3.8-10.1) Red Blood Count 5.97mil/mm3 (4.40-5.80) Hemoglobin 17.5g/dL (13.8-17.2) Hematocrit 50.4% (41.0-50.0) Mean Corpuscular Volume 84.4fL (81-100) Mean Corpuscular Hemoglobin 29.3pg (27.0-35.0) Mean Corpuscular Hemoglobin Concent 34.7% (32.0-37.0) Red Cell Distribution Width 13.8% (12.3-15.4) Platelet Count 378bil/L (150-400) Neutrophils (%) (Auto) 86.6% (40-74) Lymphocytes (%) (Auto) 5.6% (14-46) Monocytes (%) (Auto) 6.9% (4-12) Eosinophils (%) (Auto) 0.3% (0-5) Basophils (%) (Auto) 0.1% (0-3) Sodium Level 137mEq/L (134-144) Potassium Level 3.8mEq/L (3.5-5.2) Chloride Level 96mEq/L (97-108) Carbon Dioxide Level 20mmol/L (18-29) Blood Urea Nitrogen 11mg/dL (6-24) Creatinine 1.02mg/dL (0.76-1.27) Estimat Glomerular Filtration Rate 84mL/min (>59) Glucose Level 193mg/dL (60-99) Calcium Level 9.8mg/dL (8.5-10.1) Total Bilirubin 0.7mg/dL (0.0-1.2) Aspartate Amino Transf (AST/SGOT) 48U/L (0-50) Alanine Aminotransferase (ALT/SGPT) 20U/L (0-44) Alkaline Phosphatase 97U/L (25-150) Total Protein 8.0g/dL (6.4-8.4) Albumin 4.8g/dL (3.4-5.0) Hold Boyer Top Tube Received (Received) ECG Interpretation ECG Interpretation: atrial premature complex normal axis Time: 16:38 Interpreted by: ED physician Normal ECG Interpretation: Normal rate (65), Normal sinus rhythm Re-Eval/Medical Decision Med Decision/Clinical Course The patient feels quite a bit better after hydration and antiemetics. He does have an elevated white blood cell count and a degree of hemoconcentration. I do not believe further evaluation is necessary at this point in as much as his examination is normal and vital signs are normal as well. Urine tox shows narcotics only, no methamphetamines. I recommended copious oral hydration and watch for waiting and close follow-up next week Time of Eval: 17:00 Patient Status: Mild relief Re-Evaluation/Progress Note: Patient reports that his nausea has improved. Counseled Regarding: Diagnosis, Lab results, Need for follow-up, When/why to return to ED Discharge & Departure Primary Impression: Chills (without fever) Additional Impression: Nausea Disposition: Home Discharge Condition All VS Reviewed: Yes Condition: Stable Patient Instructions: Acute Nausea and Vomiting (ED) Additional Instructions: No dangerous condition is discovered. You do appear to be somewhat dehydrated and therefore I recommend copious oral hydration over the next couple of days. If you develop a high fever or feel worse, please return to the emergency department, otherwise, follow-up with your doctor in the next few days. Referrals: Jaden Rhodes MD (PCP) Cassandraibe Attestation Portions of this note were transcribed by Marya Saleem. I, Dr. Kaur personally performed the history, physical exam and medical decision-making; I reviewed and confirmed the accuracy of the information in the transcribed note. Signed by: Ronny Laird, 11/04/16 copies to: Jaden Rhodes MD, Kirk H MD Nov 04, 2016 16:57 Jessie Saleem Nov 04, 2016 17:05
[2016-11-04] MEDS ORDERED: 0.9% Sodium Chloride 1,000 ML IV ONE (17:15)
[2016-11-04 18:20] LABS: APPEARANCE,URINE CLEAR (CLEAR,HAZY); COLOR,URINE YELLOW (YELLOW); OCCULT BLOOD,URINE NEGATIVE (NEGATIVE); PH,URINE 7.5 (5.0-8.0); UROBILINOGEN,URINE NORMAL (NORMAL)
[2016-11-04 18:31] VITALS: BP 126/72; PULSE 65; RESP 16; O2SAT 99
[2016-11-04 18:42] VITALS: BP 126/72; PULSE 65; RESP 16; O2SAT 99
== END 2016-11-04 18:50 | disposition home or self-care (01) ==
LOC: SED 15:20
DX: R68.83 Chills (without fever) (principal); R11.2 Nausea with vomiting, unspecified; R00.2 Palpitations; R61 Generalized hyperhidrosis; I10 Essential (primary) hypertension; I48.91 Unspecified atrial fibrillation; F41.8 Other specified anxiety disorders; E11.40 Type 2 diabetes mellitus with diabetic neuropathy, unspecified; F17.200 Nicotine dependence, unspecified, uncomplicated; Z85.72 Personal history of non-Hodgkin lymphomas; Z87.828 Personal history of other (healed) physical injury and trauma; Z90.89 Acquired absence of other organs
CPT/HCPCS: 36415; 80053; 81000; 81002; 85025; 93005; 96360; 99285; G0480; J7030